=== PATIENT | male | born 1960 | race Two or more races ===

== ENCOUNTER 2022-01-08 16:24 | Emergency (ER) | payer OTHER ==
[~2022-01-08] VITALS: Ht 185.4 cm; Wt 79.4 kg
[2022-01-08 16:30] VITALS: BP 135/75
--- NOTE | 2022-01-08 16:34 | NUR ---
SEEN AND CLEARED BY DR FERNÁNDEZ
== END 2022-01-08 16:46 ==
LOC: ER 16:39
DX: Z02.89 Encounter for other administrative examinations (principal); F10.129 Alcohol abuse with intoxication, unspecified; E11.9 Type 2 diabetes mellitus without complications; Y90.9 Presence of alcohol in blood, level not specified